=== PATIENT | male | born 1965 | race Caucasian/White ===

== ENCOUNTER 2019-06-13 06:43 | Observation (INO) | payer OTHER, SELFPAY ==
[2019-06-13] VITALS (7 sets, daily range): BP systolic 114–141; BP diastolic 67–83; PULSE 60–79; RESP 13–16; TEMP 35.9–36.7; O2SAT 97–100; BMI 20.2; BMI 19.0
--- NOTE | 2019-06-13 06:51 | EKG12_ITS ---
Test Reason : CP Blood Pressure : / mmHG Vent. Rate : 068 BPM Atrial Rate : 068 BPM P-R Int : 144 ms QRS Dur : 106 ms QT Int : 380 ms P-R-T Axes : 077 054 054 degrees QTc Int : 404 ms Sinus rhythm with marked sinus arrhythmia Incomplete right bundle branch block Borderline ECG Confirmed by LUCIANA LEMOS, MAXINE ([id number]), manuscript editor FRANCINE BELTRÁN ([id number]) on 06/18/2019 2:13:22 PM Referred By: HERBERT Confirmed By:MAXINE CHOWDHURY MD
--- NOTE | 2019-06-13 06:56 | NURSING ---
NO OLD EKGS
--- NOTE | 2019-06-13 06:59 | ED.VIS.GEN ---
History of Present Illness Chief Complaint: Chest Pain Informant: Patient Onset: Today - Onset 0500 while getting ready for work Context: Sudden Onset Timing: Continuous Quality: Pressure Location: Central chest Current Severity: Mild Maximum Severity: Moderate Worsened by: Nothing Relieved by: Nothing Associated Symptoms: Shortness of breath Narrative: Patient is a middle-age male who has no medical problems and only risk factor for coronary disease is grandparents. He is on no medication. He states he was getting ready for work. He developed chest pressure located in center of his chest without radiation and associated with shortness of breath. He has no other symptoms. He denies leg pain, swelling or discoloration. He denies history of VTE. Nothing makes the pain better or worse. He states he was not doing anything when the discomfort started. He denies exertional chest pain or shortness of breath the past week. He denies black or maroon stool. Denies history of hiatal hernia or reflux. He has no infectious symptoms. Several days ago he did complain of headache. He does not recall patient of headache or severity or quality. Prior similar symptoms: No Recent Illness/Hospitalization: No - Past Medical History (1) No significant past medical history Status: Acute Past Medical History - Allergies and Home Meds Allergies/Adverse Reactions: Allergies bee venom protein (honey bee) Adverse Reaction (Verified 06/13/19 06:45) Anaphylaxis Primary Care Physician: Hi Escalera MD [Primary Care Provider] - Prior records reviewed: No Past Medical History: None Surgical History: no surgical history Lives: Spouse/ Significant Other Smoking Status: Never smoker Alcohol: None Drugs: None Review of Systems General: Denies: Chills, Fever, Sweats Eyes: Denies: Visual changes - bilaterally, Blurred Vision - bilaterally ENT: Denies: Rhinorrhea, Sore throat Cardiovascular: Reports: Chest pain. Denies: Palpitations, Heart racing Respiratory: Reports: Dyspnea. Denies: Cough, Sputum, Dyspnea on exertion, Orthopnea, Paroxysmal nocturnal dyspnea, -, - Gastrointestinal: Denies: Abdominal pain, Nausea, Vomiting, Diarrhea, Melena, Hematochezia Genitourinary: Denies: Dysuria, Hematuria, Frequency Musculoskeletal: Denies: Myalgias, Arthralgias, Neck pain, Back pain, Swelling, Extremity Pain Skin: Denies: Rash, Wounds Neurological: Denies: Headache, Weakness, Numbness Hematologic: Denies: Easy bruising, Easy bleeding Allergy: Denies: Uticaria, Swelling of the mouth, Swelling of the tongue Physical Exam Vital Signs/Narrative: Vital Signs Temp Pulse Resp BP Pulse Ox 06/13/19 06:46 96.7 F L 69 13 141/80 H 100 Inital Vital Signs reviewed: Yes General: Well nourished, Well developed, No Acute Distress Head: Normocephalic, Atraumatic Eyes: Perrl, EOMI ENT: Moist mucous membranes, No rhinorrhea Neck: Supple, Nontender, No lymphadenopathy, No JVD Cardiovascular: Regular rate, Regular rhythm, No murmurs, Normal S1, Normal S2 Respiratory: No distress, CTA bilaterally, Chest nontender Abdomen: Soft, Nontender, Nondistended, Normal bowel sounds, No masses Back: Nontender, Normal Inspection. Negative for: CVA tenderness Extremities: Nontender, No edema, - - There is no asymmetry, swelling, discoloration, leg vein distention, palpable cords or tenderness along the distribution of the deep venous system. Skin: Normal color, No rash, No Trauma. Negative for: Cyanosis, Diaphoresis, Jaundice Neurological: Alert, Oriented x3, Cranial nerves II-XII grossly intact, Normal Strength, Normal Sensation Psychological: Normal affect, Normal Mood Diagnostic/Tx/Re-eval Chest X-Ray - ED: 1 View, Read by ED Physician, Normal, Heart, Mediastinum, Bony Structures, No Acute Disease, - - There is granulomatous disease noted. There is no effusion, infiltrate or pneumothorax. Mediastinum appears normal. 06/13/19 06:51 Chest 1 View (Portable) [RAD] Stat Laboratory Results 06/13/19 06/13/19 06:55 06:55 WBC 6.2 RBC 4.76 Hgb 14.2 Hct 42.6 MCV 89.5 MCH 29.8 MCHC 33.3 RDW Std Deviation 39.7 RDW Coeff of Christopher 12.1 Plt Count 214 MPV 10.3 Immature Gran % (Auto) 0.800 Neut % (Auto) 66.0 Lymph % (Auto) 23.3 Bledsoe % (Auto) 7.4 Eos % (Auto) 1.9 Baso % (Auto) 0.6 Absolute Neuts (auto) 4.1 Absolute Lymphs (auto) 1.45 Nucleated RBC % 0 Sodium 141 Potassium 3.6 Chloride 106 Carbon Dioxide 30.0 Anion Gap 5 BUN 16 Creatinine 1.08 Estim Creat Clear Calc 56.17 Est GFR (MDRD) Af Amer 91 Est GFR (MDRD) Non-Af 75 BUN/Creatinine Ratio 14.8 Glucose 166 H Calcium 9.5 Troponin I < 0.015 Patient's laboratory results were remarkable for an elevated blood sugar of 166. Troponin was obtained less than 2 hours from onset of pain. Patient did have relief with nitroglycerin. Will call hospitalist for stress testing. - EKG Initial EKG Interpretation: Sinus Rhythm - Sinus rhythm with a ventricular rate of 68 with respiratory variance. TN interval 244 ms. QS duration 106 ms. QT duration 380 ms. There is an RR prime in V1 and V2 and morphology is suggestive of an incomplete right bundle branch block. No acute ischemic changes noted. - Medical Decision Making Chest pain order set was entered. Differential diagnosis includes cardiac ischemia, GI etiology, pulmonary etiology or pain of unknown etiology. Doubt pulmonary embolus. Heart score is 2. Because he describes as pressure and associated shortness of breath nitroglycerin was ordered as well as aspirin. Patient was reassessed at 0740. He states that the pressure sensation in the middle of his chest resolved after 1 nitroglycerin. Patient by definition is low risk since heart score is 2. However since he presented with then 1.5 to 2.0 hours of onset one would expect troponin to be normal. Plan is to contact hospitalist for observation status with repeat enzymes and provocative testing. ED Disposition - Plan for ED Patient: Disposition: Acute Care Hospital [facility] Diagnosis: Midsternal chest pain, Acute hyperglycemia Referrals: Hi Escalera MD [Primary Care Provider] -
[2019-06-13 07:02] LABS: Absolute Lymphocyte Count 1.45 X10^3/uL (0.83-4.51); Absolute Neutrophil Count 4.1 X10^3/uL (2.0-7.7); Basophil# 0.04 X10^3/uL; Basophil% 0.6 % (0-1); Eosinophil# 0.12 X10^3/uL; Eosinophils% 1.9 % (0-5); Hematocrit 42.6 % (40-54); Hemoglobin 14.2 g/dL (13.0-16.5); Lymphocyte # 1.45 X10^3/ul (4.0); Lymphocyte % 23.3 % (19-41); Mean Corp Hgb Conc 33.3 g/dL (32-36); Mean Corpuscular Hgb 29.8 pg (27.0-32.0); Mean Corpuscular Volume 89.5 fL (80-94); Mean Platelet Vol. 10.3 fl (6.2-12.0); Monocyte# 0.46 X10^3/uL; Monocyte% 7.4 % (0-10); NRBC Flagged by Analyzer 0 % (0-5); Neutrophil # 4.11 X10^3/uL (2.7-7.7); Platelet Count 214 K/mm3 (150-450); RBC Distribution Width CV 12.1 % (11.6-14.6); RBC Distribution Width SD 39.7 fl (35.1-43.9); Red Blood Count 4.76 M/mm3 (4.6-6.2); White Blood Count 6.2 K/mm3 (4.4-11.0)
[2019-06-13] MEDS: Aspirin 81 MG TAB.CHEW 324 MG PO (07:17)
[2019-06-13] MEDS: Nitroglycerin SL (ED/IMG/CATH) 0.4 MG TABLET SUBLINGUAL (07:18)
[2019-06-13 07:19] LABS: Anion Gap 5 (5-15); BUN 16 mg/dL (7-18); BUN/Creat Ratio 14.8 RATIO (10-20); Calcium,Total 9.5 mg/dL (8.5-10.1); Chloride 106 mmol/L (98-107); Creatinine, Serum 1.08 mg/dL (0.70-1.30); EST Glomerular Filtration Rate 75 mL/min (>60); Est Glom Filt Rate - Afr Amer 91 mL/min (>60); Estimated Creatinine Clearance 56.17 ml/min; Glucose 166 mg/dL (74-106); Potassium 3.6 mmol/L (3.5-5.1); Sodium Level 141 mmol/L (136-145)
--- NOTE | 2019-06-13 07:33 | RAD_ITS ---
STUDY: X-RAY CHEST REASON FOR EXAM: Male, 54 years old. chest pain, sob TECHNIQUE: Single AP portable view of the chest. COMPARISON: None. FINDINGS: The lungs are clear and expanded. There is no demonstrated pleural abnormality. Normal size heart. Normal mediastinum and vance. Normal visualized pulmonary arteries. Normal visualized aortic arch and descending thoracic aorta. Normal visualized thoracic spine. Normal visualized ribs, clavicles, and shoulders. There is no demonstrated abnormality of the visualized soft tissue structures of the upper abdomen. RAD/Chest 1 View (Portable) IMPRESSION: Normal x-ray examination of the chest. Electronically Signed: Mor Holden MD at 7:45 EDT Tel , Service support ,
--- NOTE | 2019-06-13 08:00 | NURSING ---
PCU OBS TERELETSKY MIDSTERNAL CP, HYPERGLYCEMIA
--- NOTE | 2019-06-13 08:34 | EKG12_ITS ---
Test Reason : Blood Pressure : / mmHG Vent. Rate : 056 BPM Atrial Rate : 056 BPM P-R Int : 140 ms QRS Dur : 104 ms QT Int : 396 ms P-R-T Axes : 076 048 051 degrees QTc Int : 382 ms Sinus bradycardia Otherwise normal ECG Confirmed by LUCIANA LEMOS, MAXINE ([id number]), video tape editor FRANCINE BELTRÁN ([id number]) on 06/18/2019 3:30:47 PM Referred By: DOMITILA Confirmed By:MAXINE CHOWDHURY MD
--- NOTE | 2019-06-13 12:29 | PCM.HP.STD ---
Problem List (1) Chest pain Status: Acute Qualifiers: Chest pain type: precordial pain Qualified Code(s): R07.2 - Precordial pain History of Present Illness Date of Admission: 06/13/19 Chief Complaint: Chest pain The patient is a 54 year old M who was seen in the emergency room at [facility] with a chief complaint of precordial chest discomfort which he described as pressure in nature which started approximately 5-6 AM this morning after the patient had eaten breakfast and was getting ready for work. Patient denied any radiation of the discomfort down his arms or up into his neck, he denied any shortness of breath or diaphoresis. Patient was given nitroglycerin on his arrival to the emergency room which she states made the chest pain go away. Work-up in the emergency room included an EKG which showed a normal sinus rhythm with an incomplete right bundle branch block, no signs of ischemic changes were noted on EKG. Patient's chest x-ray was unremarkable, patient's cardiac enzymes were normal. Patient had a slight elevation in his blood sugar. Patient will be placed in observation status on PCU, repeat troponin will be obtained at 1030 this morning, if this is negative, patient will undergo an exercise nuclear stress test to rule out ischemia. Past Medical History Allergies bee venom protein (honey bee) Adverse Reaction (Verified 06/13/19 06:45) Anaphylaxis Home Medications: Ambulatory Orders Medication Instructions Recorded Multivitamin with Minerals 1 ea PO DAILY 06/13/19 [Multiple Vitamin] Surgical History: no surgical history Psychiatric History: No pertinent psych hx Lives: Spouse/ Significant Other Smoking Status: Never smoker Tobacco Use: Non-smoker Alcohol: None Drugs: None - *Family History Maternal History Items: Cancer - Breast cancer Paternal History Items: COPD Review of Systems Constitutional: Denies: Anorexia, Chills, Fever, Night Sweats, Malaise, Weakness, Weight Change, Fatigue Eyes: Denies: Cataracts, Conjunctivae Inflammation, Double vision, Drainage HEENT: Denies: Dysphasia, Ear Pain, Eye Pain, Hearing Changes, Nasal bleeding, Nasal Congestion, Post Nasal Drip Cardiovascular: Reports: Chest Pain, Chest Pressure, Heaviness. Denies: Claudication, Chest Tightness, Edema, Light Headedness, Orthopnea, Palpitations, Paroxysmal Noc. Dyspnea Respiratory: Denies: Cough, Hemoptysis, Pleuritic Pain, Shortness of Breath, Shortness of breath at rest, Shortness of breath upon exertion, Sputum production Gastrointestinal: Denies: Abdominal Pain, Constipation, Diarrhea, Hematemesis, Hematochezia, Nausea, Melena, Vomiting Genitourinary: Denies: Dysuria, Frequency, Hematuria, Hesitancy, Urgency Musculoskeletal: Denies: Back Pain, Foot Pain, Hand Pain, Joint Pain, Joint stiffness, Joint swelling, Joint Tenderness, Leg Pain, Neck Pain Skin: Denies: Dryness, Jaundice, Pruritis, Rash Neurological: Denies: Blurred vision, Double vision, Slurred speech, Difficulty swallowing, Focal weakness, Numbness, Tingling Psychiatric: Denies: Anxiety, Depression, Homicidal Ideations, Suicidal Ideations Endocrine: Denies: Change in Body Habitus, Heat/ Cold Intolerance, Polydipsia, Polyuria Hematologic/ Lymphatic: Denies: Adenopathy, Anemia, Easy Bruising, Easy Bleeding, Petechiae, Purpura VTE Information - Inpt Only VTE Present on Admission: No VTE Mechan Device Prophylaxis: None VTE Pharm Prophylaxis ordered?: No Reason prophylaxis not ordered:: Treatment Not Indicated Patient Problems: Active and Suspected Problems Midsternal chest pain (Acute) Acute hyperglycemia (Acute) Chest pain (Acute) - Physical Exam Vitals/I&O's: Vital Signs Temp Pulse Resp BP Pulse Ox 98.1 F 67 16 135/67 H 98 06/13/19 08:40 06/13/19 08:41 06/13/19 08:40 06/13/19 08:40 06/13/19 08:40 Oxygen Delivery Method Room Air Weight: 48.7 kg Body Mass Index (BMI) 19.0 General: Alert, Oriented x3, Cooperative HEENT: Atraumatic, PERRLA, EOMI, Normocephalic Oral: Moist Mucosa Neck: Supple, No JVD, Negative Carotid Bruits, Trachea Midline, Thyroid Normal Size and Texture Lungs: Clear to auscultation, Normal air movement, No rhonchi, No wheeze, No rales Cardiovascular: Regular rate, Regular Rhythm, Normal S1, No murmurs, PMI Normal, No rub noted, No Gallop Abdomen: Bowel Sounds Present, Soft, Non Tender, Non-Distended Extremities: No clubbing, No cyanosis, No edema, Capillary Refill Less than 3 Seconds Skin: No rashes, No breakdown Musculoskeletal: No Tenderness to Palpation of Joints or Extremities Neurological: Cranial nerves II-XII grossly intact, Neuro grossly intact, Sensory exam intact to light touch and pain, Coordination normal Psych/Mental Status: Normal Affect, Appropriate, Alert and oriented to time, place, person, mood and affect Laboratory Results 06/13/19 06:55: WBC 6.2, RBC 4.76, Hgb 14.2, Hct 42.6, MCV 89.5, MCH 29.8, MCHC 33.3, RDW Std Deviation 39.7, RDW Coeff of Christopher 12.1, Plt Count 214, MPV 10.3, Immature Gran % (Auto) 0.800, Neut % (Auto) 66.0, Lymph % (Auto) 23.3, Elmore % (Auto) 7.4, Eos % (Auto) 1.9, Baso % (Auto) 0.6, Absolute Neuts (auto) 4.1, Absolute Lymphs (auto) 1.45, Nucleated RBC % 0 06/13/19 06:55: Sodium 141, Potassium 3.6, Chloride 106, Carbon Dioxide 30.0, Anion Gap 5, BUN 16, Creatinine 1.08, Estim Creat Clear Calc 56.17, Est GFR (MDRD) Af Amer 91, Est GFR (MDRD) Non-Af 75, BUN/Creatinine Ratio 14.8, Glucose 166 H, Calcium 9.5, Troponin I < 0.015 06/13/19 10:20: Troponin I < 0.015 Current Medications Sodium Chloride () 250 mls @ 15 mls/hr IV .[id number] PRN PRN Reason: Saline Flush Sodium Chloride () 250 mls @ 15 mls/hr IV .[id number] PRN PRN Reason: Additional IVPB Infusion Morphine Sulfate () 4 mg IV Q3H PRN PRN PRN Reason: Pain Score 6-10/10 Nitroglycerin (Nitrostat) 0.4 mg SUBLINGUAL Q5M PRN PRN Reason: Chest pain Last Admin: 06/13/19 07:18 Dose: 0.4 mg Documented by: Sodium Chloride () 10 - 40 ml IV UD PRN PRN Reason: SALINE FLUSH Assessment/Plan All Active Problems No significant past medical history (Acute) Midsternal chest pain (Acute) Acute hyperglycemia (Acute) Chest pain (Acute) #1 chest pain-etiology unclear, patient will be placed in observation status on PCU, patient's troponin will be rechecked-if this remains normal, he will undergo a nuclear exercise stress test later this morning. #2 elevated blood sugar-etiology unclear, patient will need to follow-up with his PCP after discharge regarding this. OBSV E&M: 04341 Initial observation care L3
--- NOTE | 2019-06-13 14:40 | STRESSREP ---
Stress Test Report Date: 06-13-2019 Procedure: Exercise tolerance test/imaging study Indications: Chest pain Consent: Per the patient Procedure: The patient exercised on a Carlos A protocol for 12 minutes completing Stage IV achieving a peak heart rate of 142 bpm (86 % predicted maximal heart rate) with a peak blood pressure 164/80 mmHg and a peak MET capacity of 13 METs. The baseline ECG demonstrated sinus rhythm. The peak exercise ECG demonstrated no obvious ECG changes. There were no cardiac dysrhythmias pretest, during exercise, or recovery. The functional capacity was considered good. There was no complaint of chest discomfort during exercise or recovery. The examination was discontinued secondary to dyspnea/leg fatigue. Impression: 1. Technically adequate (percent predicted maximal heart rate greater than 85%) exercise tolerance test 2. Peak exercise ECG with no obvious ECG changes 3. There were no cardiac dysrhythmias pretest, during exercise, or recovery 4. Nuclear images pending Myocardial perfusion imaging study: Technique: The patient was injected with 12.0 mCi of technetium 99m Cardiolite and subsequently rest SPECT Cardiolite nuclear imaging was obtained in the horizontal long, vertical long, and short axis views. The patient exercised on a Carlos A protocol for 12 minutes completing Stage IV achieving a peak heart rate of 142 bpm (86 % predicted maximal heart rate) with a peak blood pressure 164/80 mmHg and a peak MET capacity of 13 METs. The patient was injected with 36.0 mCi of technetium 99m Cardiolite and subsequently stress SPECT Cardiolite nuclear imaging was obtained in the horizontal long, vertical long, and short axis views. A gated Cardiolite study at peak stress was obtained. Interpretation: Rest and stress SPECT Cardiolite nuclear imaging status post realignment, normalization, and attenuation correction, demonstrates findings compatible with extracardiac/gastrointestinal uptake and relative uniform tracer uptake and myocardial perfusion appearing within normal limits. There is end systolic thickening and brightening. The gated Cardiolite study demonstrates myocardial thickening and inward wall motion. The reported LVEF is have not 72 %. Impression: 1. Rest and stress SPECT Cardiolite nuclear imaging demonstrate myocardial perfusion changes compatible with the effects of gastrointestinal tracer uptake and otherwise relative uniform tracer uptake and myocardial perfusion appearing within normal limits. 2. The gated Cardiolite study reports an LVEF of 72 %. This note was generated with [employer] software. It may contain incorrect words, spelling, and punctuation that were not noted in checking the note before signing.
--- NOTE | 2019-06-13 15:12 | DCINST_ITS ---
- Discharge Diagnoses Current Active Problems: Current Active and Chronic Problems Midsternal chest pain (Acute) Acute hyperglycemia (Acute) Chest pain (Acute) You will use the following diet at home:: No restrictions Your food should be the consistency of: Regular Your liquids should be the consistency of: Regular/Thin Discharge Activity: Return to Normal Activity Allergies/Adverse Reactions: Allergies bee venom protein (honey bee) Adverse Reaction (Verified 06/13/19 06:45) Anaphylaxis Medications to take at Discharge Multivitamin with Minerals [Multiple Vitamin] 1 ea PO DAILY 06/13/19 Primary Care Physician: Hi Escalera MD [Primary Care Provider] - Please follow up with your Primary Care Physician in: as needed Test Results: Test results from this visit will be discussed in further detail at your follow- up appointment, if applicable.
--- NOTE | 2019-06-14 08:52 | PCM.DC.SUM ---
Discharge Date and Diagnosis Date of Admission: 06/13/19 Date of Discharge: 06/13/19 - Primary Discharge Diagnosis #1 musculoskeletal chest pain #2 hyperglycemia Hospital Course and Treatment Operations: None Procedures: Nuclear stress test Summary of Care Provided: The patient is a 54 year old M who was seen in the emergency room at [facility] with complaints of chest discomfort which started in the early hours of 06/13/2019. Work-up in the emergency room included an EKG which showed an incomplete bundle branch block but no acute ischemic changes. Chest x-ray was unremarkable, cardiac isoenzymes were negative. Patient was given nitroglycerin in the emergency room which resolved his chest pain. Patient was placed in observation status on PCU, repeat troponin was obtained a few hours later and this was normal, patient underwent an exercise nuclear stress test which was negative for reversible ischemia. On 06/13/2019, patient was seen and examined: On examination he appeared in good health and spirits. Vital signs as documented. Skin warm and dry and without overt rashes. Neck without JVD, neck was supple, trachea midline, thyroid was normal. Lungs clear bilaterally, normal air movement was noted. Heart exam notable for regular rhythm, normal sounds and absence of murmurs, rubs or gallops. Abdomen unremarkable and without evidence of organomegaly, masses, or abdominal aortic enlargement. Bowel sounds are present, abdomen is not distended. Extremities nonedematous, no cyanosis was noted, no clubbing was noted. Neuro: Cranial nerves II through XII are grossly intact, no focal motor deficits were noted, sensation to light touch and pinprick intact, motor exam 5/5 throughout. Psych: Patient is alert and oriented x3, he does not appear anxious or depressed, he does not appear agitated. Patient was felt stable for discharge on 06/13/2019. - Physical Exam Vitals/I&O's: Vital Signs Temp Pulse Resp BP Pulse Ox 97.8 F 60 16 117/80 97 06/13/19 14:40 06/13/19 14:55 06/13/19 14:40 06/13/19 14:40 06/13/19 14:40 Oxygen Delivery Method Room Air Weight: 48.7 kg Body Mass Index (BMI) 19.0 Laboratory Results 06/13/19 10:20: Troponin I < 0.015 Discharge Activity: Return to Normal Activity Home Medications: Medications to take at Discharge Multivitamin with Minerals [Multiple Vitamin] 1 ea PO DAILY 06/13/19 Primary Care Physician: Hi Escalera MD [Primary Care Provider] - Please follow up with your Primary Care Physician in: as needed Disposition: Home Minutes spent on discharge:: 30 Patient Condition:: Stable Medical Necessity - Tobacco Use Smoking Status: Never smoker Tobacco Use: Non-smoker Meaningful Use Info Meaningful Use Diagnoses (Choose all that apply): None applicable OBSV E&M: 17625 Observ/hosp same date L3
== END 2019-06-13 15:12 | disposition home or self-care (01) ==
LOC: ED 08:18 → PCU 09:26
PROVIDERS: Admitting Provider Internal Medicine; Emergency Provider Emergency Medicine; PCP Family Medicine; Visit Provider Internal Medicine
DX: R07.89 Other chest pain (principal); R73.9 Hyperglycemia, unspecified; R06.02 Shortness of breath; R51 Headache; I45.10 Unspecified right bundle-branch block
CPT/HCPCS: 36415; 71045; 78452; 80048; 84484; 85025; 93005; 93017; 99218; 99285; A9500; A4216; G0378

== ENCOUNTER 2020-05-09 14:01 | Outpatient (RCR) | payer OTHER, SELFPAY ==
[2019-06-13 08:43] VITALS: BMI 19.0
== END 2020-07-22 23:59 ==
LOC: IMMUN 14:01
PROVIDERS: PCP Family Medicine; Visit Provider Family Medicine
DX: Z23 Encounter for immunization (principal)
CPT/HCPCS: 0001A; 0002A; 91300

== ENCOUNTER → 2020-10-22 | Outpatient (CLI) | payer OTHER, SELFPAY ==
[2020-10-23 19:10] LABS: Covid Inpatient test code BILL Performed (.)
== END | disposition home or self-care (01) ==
PROVIDERS: PCP Family Medicine; Visit Provider Physician Assistant Surgical
DX: R05 Cough (principal); Z20.822 Contact with and (suspected) exposure to COVID-19
CPT/HCPCS: 87635; U0005; U0003

== ENCOUNTER 2021-05-01 07:56 | Outpatient (CLI) | payer BC, SELFPAY ==
--- NOTE | 2021-05-01 07:59 | US_ITS ---
STUDY: ABDOMINAL ULTRASOUND - RIGHT UPPER QUADRANT REASON FOR VISIT: Male, 56 years old EPIGASTRIC PAIN x 4-6 weeks TECHNIQUE: Ultrasound evaluation of the right upper quadrant was performed with real-time and static jacob-scale imaging. TECHNICAL QUALITY: Adequate. COMPARISON: None. FINDINGS: Liver: The liver measures 12.6 cm. There is normal echogenicity of the liver. The bile ducts are within normal limits. There is hepatic color flow. The direction of portal flow is hepatopetal. There is no demonstrated mass lesion. Gallbladder: Normal distended gallbladder. The gallbladder wall measures 1.7 mm. There is a negative sonographic Patten''s sign. There is no pericholecystic fluid. There are no gallstones, there is a small nonshadowing polyp Common Bile Duct (C.B.D.): The common bile duct measures 3.9 mm. Pancreas: Normal size of the head, body and tail of the pancreas. There is normal echogenicity of the pancreas. There is no demonstrated pancreatic mass or cyst. Right Kidney: Normal size of the right kidney. The right kidney measures 9.1 x 4.7 x 3.6 cm. Normal renal cortex. The right cortex measures 1.0 cm. There is no demonstrated renal mass or cyst. There is no right hydronephrosis. US/Abdomen Limited IMPRESSION: No suspicious sonographic findings, gallbladder polyp, no specific follow-up needed. Electronically Signed: Miguel Brady MD at 10:33 EDT ,
== END 2021-05-01 23:59 | disposition home or self-care (01) ==
LOC: US 07:58
PROVIDERS: PCP Family Medicine; Referring Provider Family Medicine; Visit Provider Family Medicine
DX: R10.13 Epigastric pain (principal)
CPT/HCPCS: 76705

== ENCOUNTER 2021-10-15 05:24 | Day surgery (SDC) | payer BC, SELFPAY ==
[2021-10-15] VITALS (7 sets, daily range): BP systolic 110–123; BP diastolic 70–88; PULSE 69–80; RESP 16–18; TEMP 36.4–36.8; O2SAT 100; BMI 38.6
--- NOTE | 2021-10-15 | COLBX_PTH ---
PATIENT: KEYA MOORE LOC: EN U#:[id number] AGE/SX: 56/M ROOM: RE10/15/[address]: Dr. David Singletary DO : 1965 BED: DIS: 10/15/2021 SPEC #: [id number] RECD: 10/15/21 11:17 STATUS: MINA MALIK #: [id number] BOBBY: 10/15/21 00:[address]: David Singletary DEPT: SURGICAL PATHOLOGY RECD BY: Elian Salas ENTERED: 10/15/21 11:18 SP TYPE: COLON BX JOBY DR: Dr. Hi Escalera MD Tissues: A - Ileum, NOS B - COLON BIOPSY Procedures: Surgery Specimen Level IV HEADER OPERATION: Colonoscopy (MAC), biopsy PRE-OP DIAGNOSIS: Epigastric discomfort TISSUE SUBMITTED: A ? Terminal ileum biopsy, B ? Random colonic biopsy MICROSCOPIC DIAGNOSIS A. Terminal ileum, biopsy: No pathologic change. B. Colon, random biopsy: No pathologic change. AM:abdirashid 10/16/2021 MICROSCOPIC DESCRIPTION Slides are reviewed. GROSS DESCRIPTION A - Received in fixative is one container labeled with the patient's name and designated terminal ileum. The specimen consists of one irregular fragment of light ruiz soft tissue that measures 0.3 x 0.3 x 0.1 cm. The specimen is totally submitted in one cassette. B - Received in fixative is one container labeled with the patient's name and designated random colonic biopsy. The specimen consists of multiple irregular fragments of light ruiz soft tissue that in aggregate measure 1.5 x 0.5 x 0.1 cm. The specimen is totally submitted in one cassette. / SJ:abdirashid 10/15/2021 TC:5 CPT: 34607 x2
[2021-10-15] MEDS: Lactated Ringers 1,000 ML 15 ML IV (06:05)
--- NOTE | 2021-10-15 06:35 | HP.PCM_ITS ---
History and Physical Date of Admission: 10/15/21 Details: KEYA MOORE, is a 56 M who presents to the office today for epigastric pressure that began approximately 4 months ago, it then resolved spontaneously about one month ago. No known cause, no prior hx of this discomfort. He denies any actual abdominal pain. Also no chest pain or back pain. The pressure was constant with the severity waxing and waning. No aggravating or relieving factors. Not related to eating or BMs. Took famotidine x 2 wks w/o relief. Denies nausea, vomiting, hematemesis, heartburn, acid reflux, dysphagia. His stools were briefly looser than normal, and appeared green, that also resolved spontaneously. He denies constipation, diarrhea, melena, hematochezia. His weight is stable, reports he has always been 106 lbs. Appetite is normal. Nonsmoker, no illicit drugs. He used to drink 3 beers per week but stopped that when he had the abdominal pressure. 05/01/21 RUQ US small gallbladder polyp He is very healthy in general, just had a checkup. Lipids and glucose normal. FH breast cancer mother and multiple other maternal relatives ROS Const Constitutional: No fatigue ENT ENT: No difficulty swallowing Gastro GI: No abdominal pain, belching, bloating, change in bowel habits, change in stool character, coffee ground emesis, constipation, cramping, diarrhea, heartburn, difficulty swallowing, feeling full early, excessive flatus, incontinent of stools, Vomiting blood/hematemesis, Blood in stool, loose stools, Black,tarry stools, nausea/dyspepsia, pain with swallowing, vomiting or other Musc Musculoskeletal: No joint pain Skin Skin: No yellowing of the eye or itchy eyes Psych Psychiatric: No anxiety and No depression Endo Endocrine: No fatigue Aller/Imm Allergy/Immunologic: No itchy eyes Jero/Lymp Hematologic/Lymphatic: No easy bleeding or easy bruising Exam Const General: cooperative, comfortable, well developed and well groomed Nutritional Appearance: thin Eyes General: appearance normal, both eyes and all related structures Chest Chest palpation & inspection: normal inspection of the chest Resp Effort & Inspection: normal respiratory effort GI Inspection: normal to inspection Palpation: soft, no hepatosplenomegaly, no masses and nontender Skin General: no rashes or lesions noted Neuro General: patient alert, patient awake and patient oriented x3 Gait: normal gait Extrem General: no pedal edema Psych Mood: euthymic mood Affect: normal affect Quality Reporting Tobacco Screening ([facility]) Smoking Status: Never smoker Assessment and Plan Assessment and Plan (1) Epigastric discomfort: ?Status:?Acute ?Plan - 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 He has never had colonoscopy, is willing to schedule screening colonoscopy and we will also do EGD to eval upper GI tract considering the recent epigastric discomfort. If that returns prior to endoscopy pt and will notify me so we can work it up. I have re-examined the patient. There are no clinical changes since date of exam.
--- NOTE | 2021-10-15 07:03 | OP.COLON_ITS ---
Patient Name: Pranay Mccray Procedure Date: 10/15/2021 6:19 AM Date of : 1965 Age: 56 Procedure: Colonoscopy Indications: Screening for colorectal malignant neoplasm Providers: David Singletary DO Medicines: Monitored Anesthesia Care Patient Profile: This is a 56 year old male. Refer to note in patient chart for documentation of history and physical. Last Colonoscopy: none. The patient's first colonoscopy is today. Complications: No immediate complications. Procedure: Pre-Anesthesia Assessment: - Prior to the procedure, a History and Physical was performed, and patient medications and allergies were reviewed. The patient is competent. The risks and benefits of the procedure and the sedation options and risks were discussed with the patient. All questions were answered and informed consent was obtained. Patient identification and proposed procedure were verified by the physician in the pre-procedure area. Mental Status Examination: alert and oriented. Airway Examination: normal oropharyngeal airway and neck mobility. Respiratory Examination: clear to auscultation. CV Examination: normal. Prophylactic Antibiotics: The patient does not require prophylactic antibiotics. Prior Anticoagulants: The patient has taken no previous anticoagulant or antiplatelet agents. ASA Grade Assessment: II - A patient with mild systemic disease. After reviewing the risks and benefits, the patient was deemed in satisfactory condition to undergo the procedure. The anesthesia plan was to use moderate sedation / analgesia (conscious sedation). Immediately prior to administration of medications, the patient was re-assessed for adequacy to receive sedatives. The heart rate, respiratory rate, oxygen saturations, blood pressure, adequacy of pulmonary ventilation, and response to care were monitored throughout the procedure. The physical status of the patient was re-assessed after the procedure. After I obtained informed consent, the scope was passed under direct vision. Throughout the procedure, the patient's blood pressure, pulse, and oxygen saturations were monitored continuously. The pediatric colonoscope was introduced through the anus and advanced to the cecum, identified by appendiceal orifice and ileocecal valve. The colonoscopy was performed without difficulty. The patient tolerated the procedure well. The quality of the bowel preparation was good. Scope In: 6:40:47 AM Scope Withdrawal Time 0 hours 8 minutes 55 seconds Scope Out: 6:54:01 AM Total Procedure Duration Time 0 hours 13 minutes 14 seconds Findings: The perianal and digital rectal examinations were normal. The colon (entire examined portion) appeared normal. The terminal ileum appeared normal. Impression: - The entire examined colon is normal. - The examined portion of the ileum was normal. - No specimens collected. Recommendation: - Discharge patient to home. - Resume previous diet. - Continue present medications. - Repeat colonoscopy in 10 years for screening purposes. Procedure Code(s): --- Professional --- G0121, Colorectal cancer screening; colonoscopy on individual not meeting criteria for high risk CPT copyright 2017 [employer]. All rights reserved. The codes documented in this report are preliminary and upon grades 6 through 8 teacher review may be revised to meet current compliance requirements. David Singletary DO 10/15/2021 7:02:00 AM This report has been signed electronically. Number of Addenda: 1 Note Initiated On: 10/15/2021 6:19 AM Addendum Number: 1 Addendum Date: 11/20/2021 6:15:50 AM MAC was used as sedation for this procedure. David Singletary DO 11/20/2021 6:16:10 AM This report has been signed electronically.
--- NOTE | 2021-10-15 07:03 | OP.CCLET_ITS ---
11/20/2021 Hi Escalera Re : Colonoscopy procedure for Pranay Mccray Dear Lali This procedure was performed on October. My impressions and recommendations are as follows: Impressions : - The entire examined colon is normal. - The examined portion of the ileum was normal. - No specimens collected. Recommendations : - Discharge patient to home. - Resume previous diet. - Continue present medications. - Repeat colonoscopy in 10 years for screening purposes. My findings are described in the full procedure note, which is enclosed. If I can be of further assistance, please feel free to contact me at . Sincerely, David Singletary, 10/15/2021 7:02:00 AM This report has been signed electronically.
== END 2021-10-15 07:40 | disposition home or self-care (01) ==
LOC: EN 05:25 → AC 05:26
PROVIDERS: PCP Family Medicine; Referring Provider Family Medicine; Visit Provider Internal Medicine Gastroenterology
PROC: 0DJD8ZZ Inspection of Lower Intestinal Tract, Via Natural or Artificial Opening Endoscopic (ICD-10-PCS; CPT 45378; principal; 2021-10-15 06:25)
DX: R10.13 Epigastric pain (principal)
CPT/HCPCS: 45378; 88305; J7120; J2405

== ENCOUNTER → 2021-11-02 | Outpatient (CLI) | payer BC, SELFPAY ==
[2021-11-02 09:09] LABS: Erythrocyte Sedimentation Rate < 1 mm/hr (0-20)
[2021-11-02 09:11] LABS: Absolute Lymphocyte Count 1.47 X10^3/uL (0.83-4.51); Absolute Neutrophil Count 3.6 X10^3/uL (2.0-7.7); Basophil# 0.03 X10^3/uL; Basophil% 0.5 % (0-1); Eosinophil# 0.08 X10^3/uL; Eosinophils% 1.4 % (0-5); Hematocrit 44.4 % (40-54); Hemoglobin 14.4 g/dL (13.0-16.5); Lymphocyte # 1.47 X10^3/ul (0.83-4.51); Lymphocyte % 26.1 % (19-41); Mean Corp Hgb Conc 32.4 g/dL (32-36); Mean Corpuscular Hgb 29.2 pg (27.0-32.0); Mean Corpuscular Volume 90.1 fL (80-94); Mean Platelet Vol. 10.8 fl (6.2-12.0); Monocyte# 0.41 X10^3/uL; Monocyte% 7.3 % (0-10); NRBC Flagged by Analyzer 0 % (0-5); Neutrophil # 3.62 X10^3/uL (2.7-7.7); Neutrophil % 64.2 % (47-70); Platelet Count 226 K/mm3 (150-450); RBC Distribution Width CV 12.1 % (11.6-14.6); RBC Distribution Width SD 39.7 fl (35.1-43.9); Red Blood Count 4.93 M/mm3 (4.6-6.2); White Blood Count 5.6 K/mm3 (4.4-11.0)
[2021-11-02 09:27] LABS: ALB/GLOB Ratio 1.1 RATIO (0.9-2.4); AST(SGOT) 22 U/L (15-37); Alanine Aminotransfer ALT/SGPT 29 U/L (16-61); Albumin, Serum 3.7 g/dL (3.2-5.0); Alkaline Phosphatase 95 U/L (45-117); Anion Gap 4 (5-15); BUN 22 mg/dL (7-18); BUN/Creat Ratio 19.8 RATIO (10-20); CRP < 2.90 mg/L (0.0-3.0); Calcium,Total 9.5 mg/dL (8.5-10.1); Chloride 107 mmol/L (98-107); Creatinine, Serum 1.11 mg/dL (0.70-1.30); EST Glomerular Filtration Rate 72 mL/min (>60); Est Glom Filt Rate - Afr Amer 87 mL/min (>60); Globulin 3.3 g/dL (2.2-4.2); Glucose 115 mg/dL (74-106); Potassium 4.2 mmol/L (3.5-5.1); Sodium Level 142 mmol/L (136-145)
== END | disposition home or self-care (01) ==
LOC: LAB 08:21
PROVIDERS: PCP Family Medicine; Referring Provider Nurse Practitioner Adult Health; Visit Provider Nurse Practitioner Adult Health
DX: R10.13 Epigastric pain (principal)
CPT/HCPCS: 36415; 80053; 85025; 85652; 86140

== ENCOUNTER → 2022-02-09 | Outpatient (CLI) | payer BC, SELFPAY ==
--- NOTE | 2022-02-09 12:03 | RAD_ITS ---
STUDY: X-RAY - LEFT HAND, ATTENTION FIRST FINGER REASON FOR EXAM: Male, 56 years old. Swelling of thumb. TECHNIQUE: 4 view(s) of the finger were obtained. COMPARISON: None. FINDINGS: Osteopenia. Moderate arthrosis of the first CMC joint with subchondral cyst formation. Mild arthrosis of the first MCP and IP joints. No acute abnormality or erosive changes. RAD/Finger(s) Min 2 Views IMPRESSION: Osteopenia with osteoarthritic changes most marked at the first CMC joint. No acute abnormality, erosive changes or chondrocalcinosis. Electronically Signed: Aris Navarro, at 12:23 EST ,
== END | disposition home or self-care (01) ==
LOC: MTRAD 11:57
PROVIDERS: PCP Family Medicine; Referring Provider Family Medicine; Visit Provider Family Medicine
DX: M79.89 Other specified soft tissue disorders (principal)
CPT/HCPCS: 73140

== ENCOUNTER 2022-09-01 06:07 | Day surgery (SDC) | payer BC, SELFPAY ==
[2022-09-01] VITALS (7 sets, daily range): BP systolic 97–129; BP diastolic 74–84; PULSE 65–86; RESP 16–18; TEMP 36.2–36.6; O2SAT 98–100; BMI 18.3
--- NOTE | 2022-09-01 06:20 | PCM.HP.BLA ---
History and Physical Date of Admission: 09/01/22 /u epigastric pain Details: KEYA MOORE, is a 57 M who presents to the office today for 6 month f/u epigastric pain. At his last visit he reported resolution of pain with pantoprazole 20 mg every morning. In the last 2 months he has had a recurrence of the epigastric pain or pressure. Not related to eating. Doesn't radiate. Lasted for 4 days, on 2 different occasions. No associated symptoms. Normal appetite. Denies weight change. In 2021 EGD was denied by his insurance.? CT abdomen was denied by his insurance. In 2021 we got CBC, CMP, CRP, sed rate??all unremarkable.? We started him on pantoprazole 20 mg every morning on 11/19/21. He presented in June 2021 for epigastric pressure that began approximately 4 months prior, it then resolved spontaneously about one month prior. But then returned and lasted for several weeks, then resolved spontaneously again. It was more bothersome the second time it occurred, to the point of being painful. No known cause, no pattern he can discern. No chest pain or back pain. The pressure was constant with the severity waxing and waning. No aggravating or relieving factors. Not related to eating or BMs. Took famotidine x 2 wks w/o relief. Denies nausea, vomiting, hematemesis, heartburn, acid reflux, dysphagia. Bowels have been regular.? No diarrhea.? No melena or hematochezia.? He had normal screening colonoscopy in October 2021, recommendations repeat in 10 years. Nonsmoker, no illicit drugs, no alcohol. 05/01/21 RUQ US small gallbladder polyp ROS Const Constitutional: No fatigue ENT ENT: No difficulty swallowing Gastro GI: No abdominal pain, belching, bloating, change in bowel habits, change in stool character, coffee ground emesis, constipation, cramping, diarrhea, heartburn, difficulty swallowing, feeling full early, excessive flatus, incontinent of stools, Vomiting blood/hematemesis, Blood in stool, loose stools, Black,tarry stools, nausea/dyspepsia, pain with swallowing, vomiting or other Musc Musculoskeletal: Positive for Arthritis; No joint pain Skin Skin: No yellowing of the eye or itchy eyes Psych Psychiatric: No anxiety and No depression Endo Endocrine: No fatigue Aller/Imm Allergy/Immunologic: No itchy eyes Jero/Lymp Hematologic/Lymphatic: No easy bleeding or easy bruising Exam Const General: cooperative and comfortable Nutritional Appearance: thin Orientation: alert, awake and oriented x3 Eyes Sclera: sclerae normal Resp Effort & Inspection: normal respiratory effort GI Inspection: normal to inspection Palpation: no hepatosplenomegaly and nontender Quality Reporting Tobacco Screening ([facility] 138) Smoking Status: Never smoker Assessment and Plan Assessment and Plan (1) Epigastric pain: Status: Chronic Plan: Return of epigastric pain that had been controlled with PPI, will try again to get EGD Continue pantoprazole 20 mg daily I have examined the patient and the H&P has been reviewed. There are no clinical changes since date of exam.
[2022-09-01] MEDS: Lactated Ringers 1,000 ML 15 ML IV (06:42)
--- NOTE | 2022-09-01 07:15 | IMM_PTH ---
PATIENT: KEYA MOORE LOC: EN U#:[id number] AGE/SX: 57/M ROOM: RE09/01/[address]: Dr. David Singletary DO : 1965 BED: DIS: 09/01/2022 SPEC #: [id number] RECD: 09/01/22 12:48 STATUS: MINA REQ #: [id number] BOBBY: 09/01/22 07:[address]: David Singletary DEPT: IMMUNOHISTOCHEMISTRY RECD BY: Patricia Lindsey ENTERED: 09/01/22 12:48 SP TYPE: IMMUNO OTHR DR: Dr. Kristyn Berger MD Tissues: C - Stomach, NOS Procedures: H Pylori (initial) PHYSICIAN & INSTITUTION [place] [id number] SPECIMEN INFORMATION: Tissue Source: C - Antrum Clinical Info: Epigastric pain Specimen Number: [id number] CPT code: 14765 METHODOLOGY: Deparaffinized sections of prefer/formalin-fixed tissue or PAP/DQ stained slides are incubated with monoclonal/polyclonal antibodies/oligonucleotide probes. Localization is made via biotin free immunoperoxidase method. Appropriate controls are performed and reacted as expected. Results on target cell population are indicated in the following table: RESULTS: ANTIBODY / CLONE RESULT Block C H Pylori (polyclonal) negative These tests were developed and their performance characteristics determined by [facility]. They may not have been cleared or approved by the U.S. Food and Drug Administration. The FDA has determined that such clearance or approval is not necessary. The above immunohistochemical/dualISH markers are ordered and reviewed by the Pathologist. INTERPRETATION: C. Antrum, biopsy: Negative for Helicobacter pylori organisms. SJ:abdirashid 09/02/2022
--- NOTE | 2022-09-01 07:15 | EGD_PTH ---
PATIENT: KEYA MOORE LOC: EN U#:[id number] AGE/SX: 57/M ROOM: RE09/01/[address]: Dr. David Singletary DO : 1965 BED: DIS: 09/01/2022 SPEC #: [id number] RECD: 09/01/22 08:41 STATUS: MINA MALIK #: [id number] BOBBY: 09/01/22 07:[address]: David Singletary DEPT: SURGICAL PATHOLOGY RECD BY: Amira Crowell ENTERED: 09/01/22 09:06 SP TYPE: EGD BIOPSY OT DR: Dr. Kristyn Berger MD Tissues: A - Duodenum, NOS B - Pylorus C - Gastric mucous membrane D - Esophagus, NOS Procedures: Special Stain Group II Surgery Specimen Level IV Alcian Blue/PAS (control) HEADER OPERATION: EGD ([facility]), biopsy PRE-OP DIAGNOSIS: Epigastric pain TISSUE SUBMITTED: A - Duodenum biopsy, B - Pylorus biopsy, C - Antrum biopsy for histo and H.?pylori, D - Distal esophagus biopsy MICROSCOPIC DIAGNOSIS A. Duodenum, biopsy: Fragments of duodenal mucosa, no pathologic diagnosis. B. Pylorus, biopsy: Mild gastritis. See microscopic description. C. Antrum, biopsy: Mild gastritis. See microscopic description and comment. D. Distal esophagus, biopsy: Fragments of gastroesophageal mucosa with mild chronic inflammation. Intestinal metaplasia (goblet cell metaplasia) not identified. See comment. SJ:abdirashid 09/02/2022 COMMENT C. The results of immunohistochemistry for Helicobacter pylori will be reported separately ([id number]). D. Alcian blue/PAS stain with matched control is used in the evaluation of the specimen. The specimen predominantly consists of gastric mucosa. MICROSCOPIC DESCRIPTION Slides are reviewed. B & C. The specimen shows fragments of gastric mucosa with chronic inflammatory cell infiltrates in the lamina propria consisting of lymphocytes and plasma cells, consistent with mild chronic gastritis. GROSS DESCRIPTION A - Received in fixative is one container labeled with the patient's name and designated duodenum biopsy. The specimen consists of two irregular fragments of light ruiz soft tissue that in aggregate measure 0.4 x 0.3 x 0.1 cm. The specimen is totally submitted in one cassette. B - Received in fixative is one container labeled with the patient's name and designated pylorus biopsy. The specimen consists of two irregular fragments of light ruiz soft tissue that in aggregate measure 0.6 x 0.3 x 0.1 cm. The specimen is totally submitted in one cassette. C - Received in fixative is one container labeled with the patient's name and designated antrum biopsy. The specimen consists of two irregular fragments of light ruiz soft tissue that in aggregate measure 0.6 x 0.3 x 0.1 cm. The specimen is totally submitted in one cassette. D - Received in fixative is one container labeled with the patient's name and designated distal esophagus biopsy. The specimen consists of two irregular fragments of light ruiz soft tissue that in aggregate measure 0.6 x 0.5 x 0.1 cm. The specimen is totally submitted in one cassette. / SJ:rg 09/01/2022 TC:3 CPT: 55280 x4, 03243
--- NOTE | 2022-09-01 07:41 | OP.CCLET_ITS ---
09/01/2022 Hi Escalera Re : Upper GI endoscopy procedure for Pranay Chavezr Lali This procedure was performed on Thursday, September 01, 2022. My impressions and recommendations are as follows: Impressions : - Z-line irregular, 37 cm from the incisors. Biopsied. - Erythematous mucosa in the antrum and pylorus. Biopsied. - Erythematous duodenopathy. Biopsied. Recommendations : - Discharge patient to home. - Resume previous diet. - Continue present medications. - Await pathology results. - Gastric emptying study and possible upper GI with small bowel follow-through versus CT scan with oral contrast to evaluate the pyloric sphincter My findings are described in the full procedure note, which is enclosed. If I can be of further assistance, please feel free to contact me at . Sincerely, David Singletary, 09/01/2022 7:40:44 AM This report has been signed electronically.
--- NOTE | 2022-09-01 07:41 | OP.EGD_ITS ---
Patient Name: Pranay Mccray Procedure Date: 09/01/2022 7:21 AM Date of : 1965 Age: 57 Procedure: Upper GI endoscopy Indications: Epigastric abdominal pain Providers: David Singletary DO Medicines: Monitored Anesthesia Care Patient Profile: This is a 57 year old male. Refer to note in patient chart for documentation of history and physical. Patient has symptoms of chronic abdominal cramping, chronic epigastric abdominal pain and chronic nausea. Complications: No immediate complications. Procedure: Pre-Anesthesia Assessment: - Prior to the procedure, a History and Physical was performed, and patient medications and allergies were reviewed. The risks and benefits of the procedure and the sedation options and risks were discussed with the patient. All questions were answered and informed consent was obtained. Patient identification and proposed procedure were verified by the physician. Mental Status Examination: normal. CV Examination: normal. Prophylactic Antibiotics: The patient does not require prophylactic antibiotics. Prior Anticoagulants: The patient has taken no previous anticoagulant or antiplatelet agents. After reviewing the risks and benefits, the patient was deemed in satisfactory condition to undergo the procedure. The anesthesia plan was to use monitored anesthesia care (MAC). Immediately prior to administration of medications, the patient was re-assessed for adequacy to receive sedatives. The heart rate, respiratory rate, oxygen saturations, blood pressure, adequacy of pulmonary ventilation, and response to care were monitored throughout the procedure. The physical status of the patient was re-assessed after the procedure. After obtaining informed consent, the endoscope was passed under direct vision. Throughout the procedure, the patient's blood pressure, pulse, and oxygen saturations were monitored continuously. The gastroscope was introduced through the mouth, and advanced to the second part of duodenum. The upper GI endoscopy was accomplished without difficulty. The patient tolerated the procedure well. Scope In: 7:26:31 AM Scope Out: 7:31:57 AM Total Procedure Duration Time 0 hours 5 minutes 26 seconds Findings: The Z-line was irregular and was found 37 cm from the incisors. Biopsies were taken with a cold forceps for histology. Verification of patient identification for the specimen was done. Estimated blood loss was minimal. Patchy mildly erythematous mucosa without bleeding was found in the gastric antrum and at the pylorus. Biopsies were taken with a cold forceps for histology. Verification of patient identification for the specimen was done. Estimated blood loss was minimal. Patchy mildly erythematous mucosa without active bleeding and with no stigmata of bleeding was found in the duodenal bulb. Biopsies were taken with a cold forceps for histology. Verification of patient identification for the specimen was done. Estimated blood loss was minimal. Impression: - Z-line irregular, 37 cm from the incisors. Biopsied. - Erythematous mucosa in the antrum and pylorus. Biopsied. - Erythematous duodenopathy. Biopsied. Recommendation: - Discharge patient to home. - Resume previous diet. - Continue present medications. - Await pathology results. - Gastric emptying study and possible upper GI with small bowel follow-through versus CT scan with oral contrast to evaluate the pyloric sphincter Procedure Code(s): --- Professional --- 12457, Esophagogastroduodenoscopy, flexible, transoral; with biopsy, single or multiple CPT copyright 2017 [employer]. All rights reserved. The codes documented in this report are preliminary and upon layboy tender review may be revised to meet current compliance requirements. David Singletary DO 09/01/2022 7:40:44 AM This report has been signed electronically. Number of Addenda: 0 Note Initiated On: 09/01/2022 7:21 AM
== END 2022-09-01 08:16 | disposition home or self-care (01) ==
LOC: EN 06:12 → AC 06:14
PROVIDERS: PCP Family Medicine; Referring Provider Family Medicine; Visit Provider Internal Medicine Gastroenterology
PROC: 0DJ08ZZ Inspection of Upper Intestinal Tract, Via Natural or Artificial Opening Endoscopic (ICD-10-PCS; CPT 43235; principal; 2022-09-01 07:10)
DX: K22.70 Barrett's esophagus without dysplasia (principal); K29.70 Gastritis, unspecified, without bleeding; K21.9 Gastro-esophageal reflux disease without esophagitis
CPT/HCPCS: 43239; 88305; 88313; 88342; J7120; J2405